=== PATIENT | female | born 1975 | race Caucasian/White ===

== ENCOUNTER 2018-09-06 12:36 | Emergency (ER) | payer OTHER ==
[~2018-09-06] VITALS: Ht 160 cm; Wt 90.7 kg
[2018-09-06] MEDS ORDERED: IBUPROFEN 600600 M1 PO (15:18)
[2018-09-06] MEDS ORDERED: NORCO 5-325 TA1 EACH PO (15:18)
[2018-09-06] MEDS ORDERED: NORFLEX100 MG PO (15:18)
[2018-09-06] MEDS ORDERED: SENNA-DOCUSATE1 EAC1 PO (15:18)
[2018-09-06 15:52] VITALS: BP 133/75
== END 2018-09-06 15:57 | disposition home or self-care (01) ==
LOC: ER 12:36
DX: S70.02XA Contusion of left hip, initial encounter (principal); S40.011A Contusion of right shoulder, initial encounter; W00.0XXA Fall on same level due to ice and snow, initial encounter; Y93.89 Activity, other specified; Y92.89 Other specified places as the place of occurrence of the external cause; Y99.8 Other external cause status